=== PATIENT | male | born 1945 | race Caucasian/White ===

== ENCOUNTER → 2018-02-05 | Outpatient (CLI) | END | disposition home or self-care (01) ==

== ENCOUNTER 2018-03-04 04:44 | Observation (INO) | END 2018-03-06 18:10 ==

== ENCOUNTER 2018-03-10 21:04 | Emergency (ER) | END 2018-03-11 01:56 | disposition home or self-care (01) ==

== ENCOUNTER 2018-09-23 17:29 | Observation (INO) | payer MEDICARE, OTHER ==
[~2018-09-23] VITALS: Ht 167.6 cm; Wt 66.5 kg
[~2018-09-23 17:29] MED LIST: ACET-2047 PO; ASCO500C7 PO; ATOR40TA68 PO; BISA10SU55 RC; CARV6.2579 PO; CRAN3875 PO; CRAN425C6 PO; DIVA-75 PO; DOCU-144 PO; FER325 PO; FLUO20CA38 PO; GABA300C16 PO; GUAI5SYR2 PO; HYDR-4011 PO; HYDR100T25 PO; LEVO750T25 PO; LOSA50TA14 PO; MAGN400O19 PO; MAGN400T27 PO; MULTI PO; NA P133E10 RC; NAPR-688 PO; OLAN5TAB5 PO; PANT40TA3 PO; TAMS0.4C2 PO
--- NOTE | 2018-09-23 17:48 | ERD ---
ER Documentation Chief Complaint Chief Complaint CP HPI The patient is a 73-year-old male, presenting to the ER because of left-sided chest pain to the left arm that began around 4:45 PM while he was watching TV. He had similar symptoms previously before he had a stent placement in July 2017. He took 2 nitroglycerin with minimal response, called 911 who gave him additional 2 nitroglycerin and aspirin 162 mg p.o. with some response. He denies fever, chills, cough, neck pain, dyspnea, abdominal pain, vomiting, dysuria, diarrhea. He used to smoke but quitted about 2 years ago Past medical history: Epilepsy, COPD, hypertension, history of CHF, bipolar disorder, chronic low back pain Past surgical history: Back surgery, stent PCI, left testicle resection, peptic ulcer, appendectomy ROS All systems reviewed and are negative except as per history of present illness. Medications Home Meds Active Scripts Levofloxacin* (Levaquin*) 750 Mg Tablet, 750 MG PO DAILY for 10 Days, #10 TAB Prov:EVELIN NICOLAS 03/06/18 Hydrocodone/Acetaminophen ([place] 5-325 Tablet) 1 Each Tablet, 1 EACH PO Q6 PRN for SEVERE PAIN LEVEL 7-10, #7 TAB Prov:THOM RIZZO DO 03/04/18 Naproxen* (Naproxen*) 500 Mg Tablet, 500 MG PO BID PRN for PAIN, #20 TAB Prov:THOM RIZZO DO 03/04/18 Reported Medications Olanzapine* (Zyprexa*) 5 Mg Tablet, 5 MG PO DAILY, #30 TAB 03/04/18 Ascorbic Acid* (Vitamin C*) 500 Mg Capsule.sa, 500 MG PO DAILY, CAP 03/04/18 Cran/Vitc/Mannose/Inulin/Brom (Uti-Stat Liquid) 3,875 Mg/30 Ml Liquid, 3875 MG PO DAILY 03/04/18 Acetaminophen* (Acetaminophen*) 650 Mg Tablet, 650 MG PO Q4 PRN for MILD PAIN LEVEL 1-3, #30 TAB 03/04/18 Tamsulosin Hcl* (Tamsulosin Hcl*) 0.4 Mg Cap.er.24h, 0.4 MG PO HS, CAP 03/04/18 Guaifenesin-Dextromethorphan* (Robitussin* DM) 100MG/10MG/5ML Syrup, 10 ML PO Q4H PRN for COUGH, ML 03/04/18 Fluoxetine Hcl* (Prozac*) 20 Mg Capsule, 20 MG PO DAILY, CAP 03/04/18 Pantoprazole* (Protonix*) 40 Mg Tablet.dr, 40 MG PO DAILY, TAB 03/04/18 Multivitamins* (Theragran*) 1 Tab Tab, 1 TAB PO DAILY, TAB 03/04/18 Magnesium Hydroxide* (Milk Of Magnesia*) 400 Mg/5 Ml Oral.susp, 30 ML PO DAILY, ML 03/04/18 Magnesium Oxide* (Mag-Oxide*) 400 Mg Tablet, 400 MG PO BID, TAB 03/04/18 Losartan Potassium* (Losartan Potassium*) 50 Mg Tablet, 50 MG PO DAILY, TAB 03/04/18 Atorvastatin* (Atorvastatin*) 40 Mg Tablet, 40 MG PO QHS, #30 TAB 03/04/18 Hydralazine Hcl* (Hydralazine Hcl*) 100 Mg Tablet, 100 MG PO Q8, #90 TAB 03/04/18 Gabapentin* (Gabapentin*) 300 Mg Capsule, 300 MG PO DAILY, #60 CAP 03/04/18 Na Phos,M-B/Na Phos,Di-Ba (ENEMA [id number]) 133 Ml Enema, 133 ML RC EVERY 2 DAYS PRN for CONSTIPATION, ENEMA 03/04/18 Ferrous Sulfate* (Ferrous Sulfate*) 325 Mg Tabec, 325 MG PO DAILY, TAB 03/04/18 Bisacodyl (Dulcolax) 10 Mg Supp.rect, 10 MG RC DAILY PRN for CONSTIPATION, SUPP.RECT 03/04/18 Divalproex Sodium* (Depakote ER*) 500 Mg Tabsr, 1000 MG PO QHS, #60 TAB.SA 03/04/18 Cranberry Extract (Cranberry) 425 Mg Capsule, 425 MG PO DAILY, CAP 03/04/18 Docusate Sodium* (Colace*) 100 Mg Capsule, 200 MG PO QHS, #30 CAP 03/04/18 Carvedilol* (Carvedilol*) 6.25 Mg Tablet, 6.25 MG PO BID, #60 TAB 03/04/18 Allergies Allergies: Coded Allergies: iodine (Verified Allergy, Severe, hives, 03/05/18) Penicillins (Verified Allergy, Unknown, 03/04/18) Uncoded Allergies: Contrast (Allergy, Intermediate, 03/05/18) Pt states is allergic to "Xray Dye". States requires Benadryl before contrast given. PMhx/Soc History of Surgery: Yes (back sugery ) Anesthesia Reaction: No Hx Neurological Disorder: Yes (seizure) Hx Respiratory Disorders: Yes (COPD) Hx Cardiac Disorders: Yes (HTN, CHF) Hx Psychiatric Problems: Yes (BI polar ) Hx Miscellaneous Medical Probl: No Hx Alcohol Use: No Hx Substance Use: No Hx Tobacco Use: Yes Physical Exam Vitals Vital Signs Date Temp Pulse Resp B/P (MAP) Pulse Ox O2 O2 Flow FiO2 Time Delivery Rate 09/23/18 98.1 96 23 137/67 97 Room Air 19:31 (90) 09/23/18 98.1 112 18 122/64 98 Room Air 18:04 (83) 09/23/18 98.1 68 18 128/68 100 17:41 (88) Physical Exam Const: No acute distress. Head: Atraumatic. Eyes: Normal Conjunctiva. ENT: Normal External Ears, Nose and Mouth. Minimal left periorbital edema, no nystagmus Neck: Full range of motion. No meningismus. Resp: Clear to auscultation bilaterally. Cardio: Regular rate and rhythm. Abd: Soft, non distended, normal bowel sounds, non tender. Skin: No petechiae or rashes. Back: No midline or flank tenderness. Ext: No cyanosis, or edema. Neur: Awake and alert. No focal deficit Psych: Normal Mood and Affect. Result Diagram: 09/23/18190309/23/181903 Results 24 hrs Laboratory Tests Test 09/23/18 19:04 White Blood Count 6.6 10^3/ul Red Blood Count 3.25 10^6/ul Hemoglobin 9.7 g/dl Hematocrit 32.2 % Mean Corpuscular Volume 99.1 fl Mean Corpuscular Hemoglobin 29.8 pg Mean Corpuscular Hemoglobin Concent 30.1 g/dl Red Cell Distribution Width 15.5 % Platelet Count 264 10^3/UL Mean Platelet Volume 9.8 fl Immature Granulocytes % 0.600 % Neutrophils % 81.2 % Lymphocytes % 10.0 % Monocytes % 8.2 % Eosinophils % 0.0 % Basophils % 0.0 % Nucleated Red Blood Cells % 0.0 /100WBC Immature Granulocytes # 0.040 10^3/ul Neutrophils # 5.4 10^3/ul Lymphocytes # 0.7 10^3/ul Monocytes # 0.5 10^3/ul Eosinophils # 0.0 10^3/ul Basophils # 0.0 10^3/ul Nucleated Red Blood Cells # 0.0 10^3/ul Sodium Level 140 mmol/L Potassium Level 4.2 mmol/L Chloride Level 104 mmol/L Carbon Dioxide Level 32 mmol/L Anion Gap 4 Blood Urea Nitrogen 26 mg/dl Creatinine 0.67 mg/dl Est Glomerular Filtrat Rate mL/min mL/min Glucose Level 191 mg/dl Calcium Level 9.2 mg/dl Troponin I < 0.012 ng/ml Current Medications Medications Dose Sig/Ching Start Time Status Last (Trade) Ordered Route PRN Stop Time Admin Dose Reason Admin 1 inch ONCE ONCE 09/23/18 DC 09/23/18 Nitroglycerin TD 19:00 19:29 09/23/18 19:02 (Nitroglyceri n 2% Oint) Procedures/[place] [address] Radiology Main Line: [phone] DIAGNOSTIC IMAGING REPORT Patient: SANDY WALLACE : 1945 Age: 73 Sex: M MR #: [id number] DOS: 09/23/18 1750 Ordering MD: GERMAN HEBERT MD Location: E/R Room/Bed: PROCEDURE: XR Chest. CLINICAL INDICATION: Chest Pain. TECHNIQUE: Single view chest x-ray. COMPARISON: DR MONET 03/10/2018 FINDINGS: The cardiomediastinal silhouette is normal in size and contour. There are atherosclerotic calcifications of the aortic arch. Left lower lung field greater than right lower lung field infiltrates and/or atelectasis. Probable small left pleural effusion. No pneumothorax visualized. There are low lung volumes. Degenerative changes of the osseous structures. Partial visualization of spinal fusion hardware. IMPRESSION: 1. Left lower lung field greater than right lower lung field infiltrates and/or atelectasis in the low lung volume exam. Probable small left effusion. 2. Aortic atherosclerosis. RPTAT: BBDD Physician Arun Date Time Electronically viewed and signed by Physician Arun on 09/23/2018 18:51 RP/ CC: GERMAN HEBERT MD [id number] EKG: Read by emergency physician Rate/Rhythm: Sinus Tachycardia 102 beats/min QRS, ST, T-waves: No ST elevation, no T inversion, inferior Q's Impression: Abnormal EKG MEDICAL MAKING DECISION: The patient he is a 73-year-old male multiple cardiac risk factors, presents with acute chest pain that is concerning for acute ACS. He was treated with 1 inch of nitroglycerin ointment to the chest wall for acute chest pain The differential diagnoses considered include but are not limited to acute coronary syndrome, acute myocardial infarction, pericarditis, pulmonary e mbolism, aortic dissection, pneumonia, pleural effusion, pneumothorax, GERD, chest wall pain. Departure Diagnosis: Primary Impression: Chest pain Additional Impression: Anemia Condition: Stable Comments I discussed the findings with the patient. I discussed the patient with Dr Steve at 7:50p , who was made aware of the lab, the treatment, the patient condition. The patient is admitted to [facility] Disclaimer: Inadvertent spelling and grammatical errors are likely due to EHR/dictation software use and do not reflect on the overall quality of patient care. Also, please note that the electronic time recorded on this note does not necessarily reflect the actual time of the patient encounter. GERMAN HEBERT MD Sep 23, 2018 17:47
[2018-09-23] MEDS ORDERED: NITROGLYCERIN 2% 1 GM OINT PKT TD ONE (19:00)
[2018-09-23] MEDS ORDERED: NITROGLYCERIN (SL) 0.4 MG TAB SL PRN (22:00)
[2018-09-23] MEDS ORDERED: HYDROCODONE/APAP (5/325) TAB PO PRN (22:00)
[2018-09-23] MEDS ORDERED: ONDANSETRON 4 MG INJ IV PRN (22:00)
[2018-09-23] MEDS ORDERED: ACETAMINOPHEN 325 MG TAB PO PRN (22:00)
[2018-09-23] MEDS ORDERED: ALBUTEROL/IPRATROPIUM (NEB) 3 ML AMP HHN PRN (22:00)
[2018-09-23] MEDS ORDERED: NACL 0.9% 3 ML SYG IV SCH (22:00)
--- NOTE | 2018-09-23 23:48 | HP ---
Date/Time of Note Date/Time of Note DATE: 09/23/18 TIME: 23:48 Assessment/Plan VTE Prophylaxis Pharmacological prophylaxis: heparin Lines/Catheters IV Catheter Type (from Nrs): Saline Lock Assessment/Plan Assessment/Plan 1. Chest pain: Rule out ACS -continue telemetry monitoring -Supplemental oxygen, aspirin, statin, beta-julio. As needed nitro -Serial troponin -2D echo and cardiology consult 2. History of CAD: Per patient was diagnosed in 1983. Denied a history of stent -See #1 3. History of COPD: No sign of acute exacerbation 4. Chronic lower back pain: Patient reported back surgery -Patient is usually on a wheelchair, will occasionally uses a walker -PT eval -Pain management 5. Left testicular resection: Per patient done a year ago for infection -No acute issue 6. Normocytic anemia: -Check FOBT and iron/ferritin to work-up for GI bleed and iron deficiency 7. Debility: See #4 8. History of seizure: Continue home med 9. History of lower extremity DVT: Per patient status post IVC filter placement in 1983. He said filter has not been removed. Result Diagram: 09/23/18190309/23/181903 Results 24hrs Laboratory Tests Test 09/23/18 19:04 White Blood Count 6.6 # Red Blood Count 3.25 L Hemoglobin 9.7 L Hematocrit 32.2 L Mean Corpuscular Volume 99.1 Mean Corpuscular Hemoglobin 29.8 Mean Corpuscular Hemoglobin Concent 30.1 L Red Cell Distribution Width 15.5 H Platelet Count 264 # Mean Platelet Volume 9.8 Immature Granulocytes % 0.600 H Neutrophils % 81.2 H Lymphocytes % 10.0 L Monocytes % 8.2 Eosinophils % 0.0 Basophils % 0.0 Nucleated Red Blood Cells % 0.0 Immature Granulocytes # 0.040 H Neutrophils # 5.4 Lymphocytes # 0.7 L Monocytes # 0.5 Eosinophils # 0.0 Basophils # 0.0 Nucleated Red Blood Cells # 0.0 Sodium Level 140 Potassium Level 4.2 Chloride Level 104 Carbon Dioxide Level 32 H Anion Gap 4 L Blood Urea Nitrogen 26 H Creatinine 0.67 Est Glomerular Filtrat Rate mL/min Glucose Level 191 Calcium Level 9.2 Troponin I < 0.012 HPI/ROS Admit Date/Time Admit Date/Time Hx of Present Illness This is a 73-year-old male with a history of COPD, CHF, bipolar, CAD, epilepsy, chronic low back pain with a history of back surgery, lower extremity DVT status post IVC filter in 1983 who presents the ER complaining of chest pain. Pain is left-sided, pressure-like with radiation to the left arm. He said this started last night. Unable to assess whether or not it is exertional since patient is usually on wheelchair, occasionally uses walker. He said he takes Dilaudid at home for chest pain. Presents the ER, vitals were stable. First troponin is negative and EKG without ST-T wave abnormality. PMH/Family/Social Past Medical History Medical History: other (see hpi) Medications Current Medications IV Flush (NS 3 ml) 3 ml PER PROTOCOL IV ; Start 09/23/18 at 22:00 Ondansetron HCl (Zofran Inj) 4 mg Q6H PRN IV NAUSEA/VOMITING; Start 09/23/18 at 22:00 Aspirin (Aspirin) 81 mg DAILY PO ; Start 09/24/18 at 09:00 Nitroglycerin (Nitroglycerin (Sl Tab) 0.4 Mg) 1 tab Q5M PRN SL .CHEST PAIN; Start 09/23/18 at 22:00 Acetaminophen (Tylenol Tab) 650 mg Q6H PRN PO .PAIN 1-3 OR TEMP; Start 09/23/18 at 22:00 Acetaminophen/ Hydrocodone Bitart ([place] (5/325)) 1 tab Q6H PRN PO .PAIN 4-6 Last administered on 09/23/18at 22:05; Admin Dose 1 TAB; Start 09/23/18 at 22:00 Enoxaparin Sodium (Lovenox) 40 mg DAILY SC ; Start 09/24/18 at 09:00 Albuterol/ Ipratropium (Duoneb) 3 ml Q2H RESP THERAPY PRN HHN SHORTNESS OF BREATH; Start 09/23/18 at 22:00 Atorvastatin Calcium (Lipitor) 40 mg QHS PO ; Start 09/24/18 at 21:00 Carvedilol (Coreg) 6.25 mg BID PO Last administered on 09/23/18at 22:47; Admin Dose 6.25 MG; Start 09/23/18 at 22:00 Divalproex Sodium (Depakote Er) 1,000 mg QHS PO ; Start 09/24/18 at 21:00 Ferrous Sulfate (Ferrous Sulfate (Ec)) 325 mg DAILY PO ; Start 09/24/18 at 09:00 Fluoxetine HCl (Prozac) 20 mg DAILY PO ; Start 09/24/18 at 09:00 Gabapentin (Neurontin) 300 mg DAILY PO ; Start 09/24/18 at 09:00 Losartan Potassium (Cozaar) 50 mg DAILY PO ; Start 09/24/18 at 09:00 Magnesium Oxide (Mag-Ox 400) 400 mg BID PO ; Start 09/24/18 at 09:00 Multivitamins Therapeutic (Theragran) 1 tab DAILY PO ; Start 09/24/18 at 09:00 Olanzapine (Zyprexa) 5 mg DAILY PO ; Start 09/24/18 at 09:00 Pantoprazole (Protonix Tab) 40 mg DAILY@0600 PO ; Start 09/24/18 at 06:00 Coded Allergies: iodine (Verified Allergy, Severe, hives, 03/05/18) Penicillins (Verified Allergy, Unknown, 03/04/18) Uncoded Allergies: Contrast (Allergy, Intermediate, 03/05/18) Pt states is allergic to "Xray Dye". States requires Benadryl before contrast given. Past Surgical History Past Surgical Hx: other Family History Significant Family History: no pertinent family hx Social History Alcohol Use: other Smoking Status: Unknown if ever smoked Drug Use: other Exam/Review of Systems Vital Signs Vitals Vital Signs Date Temp Pulse Resp B/P (MAP) Pulse Ox O2 O2 Flow FiO2 Time Delivery Rate 09/23/18 98.1 95 23 119/61 95 Room Air 22:58 (80) Exam Constitutional: other (no acute distress) Head: normocephalic ENMT: nl external ears & nose Neck: supple Respiratory: normal air movement Cardiovascular: nl pulses Gastrointestinal: soft Extremities: normal pulses ARIE FOOTE MD Sep 23, 2018 23:48
[2018-09-24] VITALS (10 sets, daily range): BP systolic 118–155; BP diastolic 56–69; PULSE 71–98; RESP 18–19; Ht 167.6 cm; Wt 66.5 kg
[2018-09-24] MEDS ORDERED: morphine 4 MG/ML VIAL IV STA ×2 (00:24→05:41)
[2018-09-24] MEDS ORDERED: ZOLPIDEM 5 MG TAB PO ONE ×2 (02:04→21:00)
[2018-09-24] MEDS: GUAIFENESIN 20 MG/ML 5ML CUP PO PRN ×3 (02:17→18:30)
[2018-09-24] MEDS: PANTOPRAZOLE (EC) 40 MG TAB PO SCH (06:13)
[2018-09-24] MEDS: ASPIRIN 81 MG TAB PO SCH (08:16)
[2018-09-24] MEDS: MULTIVITAMINS THERAPEUTIC TAB PO SCH (08:16)
[2018-09-24] MEDS: GABAPENTIN 300 MG CAP PO SCH (08:16)
[2018-09-24] MEDS: MAGNESIUM OXIDE 400 MG TAB PO SCH ×2 (08:16→21:50)
[2018-09-24] MEDS: OLANZAPINE 5 MG TAB PO SCH (08:16)
[2018-09-24] MEDS: FERROUS SULFATE (EC) 325 MG TAB PO SCH (08:16)
[2018-09-24] MEDS: FLUOXETINE 20 MG CAP PO SCH (08:17)
[2018-09-24] MEDS: LOSARTAN 50 MG TAB PO SCH (08:17)
[2018-09-24] MEDS ORDERED: ENOXAPARIN 40 MG/0.4 ML SYG SC SCH (09:00)
[2018-09-24] MEDS: morphine 2 MG INJ IV PRN ×2 (12:27→17:18)
--- NOTE | 2018-09-24 12:35 | PN ---
Date/Time of Note Date/Time of Note DATE: 09/24/18 TIME: 12:26 Assessment/Plan VTE Prophylaxis Risk score (from Ns)>0 risk: 6 SCD applied (from Ns): No SCD contraindicated: other Pharmacological prophylaxis: LMWH Lines/Catheters IV Catheter Type (from [facility]): Saline Lock Urinary Cath still in place: No Assessment/Plan Hospital Course S: Patient presently denies chest pain. No acute events overnight. O: VS- see below PE: Gen: Lying in bed, conversant, hard of hearing, but no acute distress. Head: Atraumatic. Eyes: Normal Conjunctiva. ENT: Normal External Ears, Nose and Mouth. Minimal left periorbital edema, no nystagmus Neck: Full range of motion. No meningismus. Resp: Clear to auscultation bilaterally. Cardio: Regular rate and rhythm. Abd: Soft, non distended, normal bowel sounds, non tender. Ext: No cyanosis, or edema. Neur: Awake and alert. No focal deficit Assessment/Plan: 73-year-old male who presents with: 1. Chest pain: Rule out ACS. First 2 troponins are negative. Per records, last stress test here at [facility] was in February 2018. 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 -continue telemetry monitoring -Supplemental oxygen, aspirin, statin, beta-julio. As needed nitro -Serial troponin -awaiting third -Follow-up results of 2D echo and will obtain cardiology consult 2. History of CAD: Per patient was diagnosed in 1983. Denied a history of cardiac stent -See #1 3. History of COPD: No sign of acute exacerbation -Monitor, duo nebs as needed 4. Chronic lower back pain: Patient reported back surgery-Patient is usually on a wheelchair, will occasionally uses a walker -We will obtain PT eval -Pain management 5. 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 Normocytic anemia: Hemoglobin stable -Monitor for now, consider FOBT and iron/ferritin to work-up for iron deficiency 7. Debility: See #4 8. History of seizure: Continue home med 9. History of lower extremity DVT: Per patient status post IVC filter placement in 1983. He said filter has not been removed. -Monitor Result Diagram: 09/24/18 1100 09/24/18 1100 Results 24hrs Laboratory Tests Test 4/22/19 19:04 09/24/18 00:42 09/24/18 11:00 White Blood Count 6.6 # 5.3 Red Blood Count 3.25 L 3.12 L Hemoglobin 9.7 L 9.3 L Hematocrit 32.2 L 30.7 L Mean Corpuscular Volume 99.1 98.4 Mean Corpuscular Hemoglobin 29.8 29.8 Mean Corpuscular Hemoglobin Concent 30.1 L 30.3 L Red Cell Distribution Width 15.5 H 16.1 H Platelet Count 264 # 280 Mean Platelet Volume 9.8 9.7 Immature Granulocytes % 0.600 H 0.600 H Neutrophils % 81.2 H 56.2 Lymphocytes % 10.0 L 29.3 Monocytes % 8.2 11.6 H Eosinophils % 0.0 1.7 Basophils % 0.0 0.6 Nucleated Red Blood Cells % 0.0 0.0 Immature Granulocytes # 0.040 H 0.030 Neutrophils # 5.4 3.0 Lymphocytes # 0.7 L 1.5 Monocytes # 0.5 0.6 Eosinophils # 0.0 0.1 Basophils # 0.0 0.0 Nucleated Red Blood Cells # 0.0 0.0 Sodium Level 140 141 Potassium Level 4.2 4.4 Chloride Level 104 104 Carbon Dioxide Level 32 H 35 H Anion Gap 4 L 2 L Blood Urea Nitrogen 26 H 23 H Creatinine 0.67 0.69 Est Glomerular Filtrat Rate mL/min Glucose Level 191 95 # Calcium Level 9.2 9.4 Troponin I < 0.012 < 0.012 < 0.012 Creatine Kinase 30 22 L Creatine Kinase Index 6.1 Pending Creatinine Kinase MB (Mass) 1.83 Pending Hemoglobin A1c 6.0 H Magnesium Level 2.0 Iron Level 78 Total Iron Binding Capacity 259 Percent Iron Saturation 30 Total Bilirubin 0.1 L Direct Bilirubin 0.00 Indirect Bilirubin 0.1 Aspartate Amino Transf (AST/SGOT) 29 Alanine Aminotransferase (ALT/SGPT) 32 Alkaline Phosphatase 93 Total Protein 5.9 L Albumin 3.1 L Globulin 2.80 Albumin/Globulin Ratio 1.10 Triglycerides Level 135 Cholesterol Level 149 LDL Cholesterol, Calculated 70 HDL Cholesterol 52 Cholesterol/HDL Ratio 2.8 Exam/Review of Systems Exam Vitals Vital Signs Date Temp Pulse Resp B/P (MAP) Pulse Ox O2 O2 Flow FiO2 Time Delivery Rate 09/24/18 98.0 77 19 140/66 95 11:05 (90) 09/23/18 Room Air 23:50 Intake and Output 09/23/18 09/23/18 09/24/18 1515:00 23:00 07:00 IntakeIntake Total 450 ml BalanceBalance 450 ml Results Results 24hrs Laboratory Tests Test 09/23/18 19:04 09/24/18 00:42 09/24/18 11:00 White Blood Count 6.6 # 5.3 Red Blood Count 3.25 L 3.12 L Hemoglobin 9.7 L 9.3 L Hematocrit 32.2 L 30.7 L Mean Corpuscular Volume 99.1 98.4 Mean Corpuscular Hemoglobin 29.8 29.8 Mean Corpuscular Hemoglobin Concent 30.1 L 30.3 L Red Cell Distribution Width 15.5 H 16.1 H Platelet Count 264 # 280 Mean Platelet Volume 9.8 9.7 Immature Granulocytes % 0.600 H 0.600 H Neutrophils % 81.2 H 56.2 Lymphocytes % 10.0 L 29.3 Monocytes % 8.2 11.6 H Eosinophils % 0.0 1.7 Basophils % 0.0 0.6 Nucleated Red Blood Cells % 0.0 0.0 Immature Granulocytes # 0.040 H 0.030 Neutrophils # 5.4 3.0 Lymphocytes # 0.7 L 1.5 Monocytes # 0.5 0.6 Eosinophils # 0.0 0.1 Basophils # 0.0 0.0 Nucleated Red Blood Cells # 0.0 0.0 Sodium Level 140 141 Potassium Level 4.2 4.4 Chloride Level 104 104 Carbon Dioxide Level 32 H 35 H Anion Gap 4 L 2 L Blood Urea Nitrogen 26 H 23 H Creatinine 0.67 0.69 Est Glomerular Filtrat Rate mL/min Glucose Level 191 95 # Calcium Level 9.2 9.4 Troponin I < 0.012 < 0.012 < 0.012 Creatine Kinase 30 22 L Creatine Kinase Index 6.1 Pending Creatinine Kinase MB (Mass) 1.83 Pending Hemoglobin A1c 6.0 H Magnesium Level 2.0 Iron Level 78 Total Iron Binding Capacity 259 Percent Iron Saturation 30 Total Bilirubin 0.1 L Direct Bilirubin 0.00 Indirect Bilirubin 0.1 Aspartate Amino Transf (AST/SGOT) 29 Alanine Aminotransferase (ALT/SGPT) 32 Alkaline Phosphatase 93 Total Protein 5.9 L Albumin 3.1 L Globulin 2.80 Albumin/Globulin Ratio 1.10 Triglycerides Level 135 Cholesterol Level 149 LDL Cholesterol, Calculated 70 HDL Cholesterol 52 Cholesterol/HDL Ratio 2.8 Medications Medication Current Medications IV Flush (NS 3 ml) 3 ml PER PROTOCOL IV ; Start 09/23/18 at 22:00 Ondansetron HCl (Zofran Inj) 4 mg Q6H PRN IV NAUSEA/VOMITING; Start 09/23/18 at 22:00 Aspirin (Aspirin) 81 mg DAILY PO Last administered on 09/24/18 08:16; Admin Dose 81 MG; Start 09/24/18 at 09:00 Nitroglycerin (Nitroglycerin (Sl Tab) 0.4 Mg) 1 tab Q5M PRN SL .CHEST PAIN; Start 09/23/18 at 22:00 Acetaminophen (Tylenol Tab) 650 mg Q6H PRN PO .PAIN 1-3 OR TEMP; Start 09/23/18 at 22:00 Acetaminophen/ Hydrocodone Bitart ([place] (5/325)) 1 tab Q6H PRN PO .PAIN 4-6 Last administered on 09/23/18at 22:05; Admin Dose 1 TAB; Start 09/23/18 at 22:00 Enoxaparin Sodium (Lovenox) 40 mg DAILY SC Last administered on 09/24/18 08:22; Admin Dose 40 MG; Start 09/24/18 at 09:00 Albuterol/ Ipratropium (Duoneb) 3 ml Q2H RESP THERAPY PRN HHN SHORTNESS OF BREATH; Start 09/23/18 at 22:00 Atorvastatin Calcium (Lipitor) 40 mg QHS PO ; Start 09/24/18 at 21:00 Carvedilol (Coreg) 6.25 mg BID PO Last administered on 09/24/18 08:17; Admin Dose 6.25 MG; Start 09/23/18 at 22:00 Divalproex Sodium (Depakote Er) 1,000 mg QHS PO ; Start 09/24/18 at 21:00 Ferrous Sulfate (Ferrous Sulfate (Ec)) 325 mg DAILY PO Last administered on 09/24/18 08:16; Admin Dose 325 MG; Start 09/24/18 at 09:00 Fluoxetine HCl (Prozac) 20 mg DAILY PO Last administered on 09/24/18 08:17; Admin Dose 20 MG; Start 09/24/18 at 09:00 Gabapentin (Neurontin) 300 mg DAILY PO Last administered on 09/24/18 08:16; Admin Dose 300 MG; Start 09/24/18 at 09:00 Losartan Potassium (Cozaar) 50 mg DAILY PO Last administered on 09/24/18 08:17; Admin Dose 50 MG; Start 09/24/18 at 09:00 Magnesium Oxide (Mag-Ox 400) 400 mg BID PO Last administered on 09/24/18 08:16; Admin Dose 400 MG; Start 09/24/18 at 09:00 Multivitamins Therapeutic (Theragran) 1 tab DAILY PO Last administered on 09/24/18 08:16; Admin Dose 1 TAB; Start 09/24/18 at 09:00 Olanzapine (Zyprexa) 5 mg DAILY PO Last administered on 09/24/18 08:16; Admin Dose 5 MG; Start 09/24/18 at 09:00 Pantoprazole (Protonix Tab) 40 mg DAILY@0600 PO Last administered on 09/24/18 06:13; Admin Dose 40 MG; Start 09/24/18 at 06:00 Guaifenesin (Robitussin Liquid Cup) 100 mg Q4H PRN PO COUGH Last administered on 09/24/18 02:17; Admin Dose 100 MG; Start 09/24/18 at 02:00; Stop 09/25/18 at 01:59 Morphine Sulfate (morphine) 1 mg Q4H PRN IV SEVERE PAIN LEVEL 7-10; Start 09/24/18 at 12:30 SANDEE MCDONALD Sep 24, 2018 12:35
[2018-09-24] MEDS ORDERED: BENZ-5 PO (13:11)
--- NOTE | 2018-09-24 14:56 | CONS ---
Assessment/Plan Assessment/Plan Hospital Course (Demo Recall) 1. Chest pain appears to be typical with recurrent 2. History of DVT and PE 3. Hypertension 4. Reported history of congestive heart failure 5. COPD possible pneumonia 6. Psych disorder 7. Abnormal EKG Recommendation: Patient's troponin have been negative so far. We will schedule him for Lexiscan stress test today. If the stress test does not show any reversible ischemia patient needs to be started on Eliquis as long as no bleeding is noted Continue to monitor on telemetry now Continue with the Coreg and ARB at the moment Thank you for his referral. We will continue to follow along with you JUAN JO MD [facility] Consultation Date/Type/Reason Admit Date/Time Date of Consultation: Sep 24, 2018 Type of Consult Cardiology Reason for Consultation cp Requesting Provider: SANDEE MCDONALD Date/Time of Note DATE: 09/24/18 TIME: 14:50 Hx of Present Illness Interventional cardiology consultation note Chief complaint: Chest pain Reason for consult: Chest pain History of present illness: Thank you for this referral. History was obtained from the patient who is a very poor historian. From extensive review of the old chart and discussion physician staff This is a 3-year-old gentleman with a reported history of coronary artery disease and [place] in 1983 who was admitted through emergency room with complaint of recurrent chest pain. Again patient is a very poor historian but complains of chest pain on the left side poking. When I got to the room he was comfortably sleeping when I asked him I will give him obviously that he has pain severe left-sided. His old chart was reviewed patient has had recurrent similar pain. Work-up previously about a year ago was negative including per review of the old chart he has had a negative stress test at [facility]. Patient also has a history of DVT and probably PE as well has an IVC filter in place and supposed to be on Eliquis by do not see the list of his medication Medications were reviewed as per medical reconciliation sheet Family history:, Patient mother with coronary artery disease Social history: Quit smoking 2 years ago. Currently a intermediate. Past medical history: Patient reports history of coronary artery disease and PCI many years ago is an 82 per his report History of bilateral DVT. Per review of the old chart discussion with the physician apparently he has had a IVC filter in place. History of spinal stenosis status post spinal surgery last year at [facility] Hypertension dyslipidemia, diabetes, bipolar disorder, BPH anemia Allergies: Contrast placed saline iodine Medications were reviewed as per medical reconciliation sheet Review of system: Patient denies all others except for above-mentioned Past Medical History Home Meds Active Scripts Levofloxacin* (Levaquin*) 750 Mg Tablet, 750 MG PO DAILY for 10 Days, #10 TAB Prov:EVELIN NICOLAS. 03/06/18 Hydrocodone/Acetaminophen (Melrose 5-325 Tablet) 1 Each Tablet, 1 EACH PO Q6 PRN for SEVERE PAIN LEVEL 7-10, #7 TAB Prov:THOM RIZZO DO 03/04/18 Naproxen* (Naproxen*) 500 Mg Tablet, 500 MG PO BID PRN for PAIN, #20 TAB Prov:MATTHIASSANTITHOM DO 03/04/18 Reported Medications Benzonatate* (Benzonatate*) 100 Mg Capsule, 100 MG PO TID PRN for COUGH, CAP 09/24/18 Olanzapine* (Zyprexa*) 5 Mg Tablet, 5 MG PO DAILY, #30 TAB 03/04/18 Ascorbic Acid* (Vitamin C*) 500 Mg Capsule.sa, 500 MG PO DAILY, CAP 03/04/18 Cran/Vitc/Mannose/Inulin/Brom (Uti-Stat Liquid) 3,875 Mg/30 Ml Liquid, 3875 MG PO DAILY 03/04/18 Acetaminophen* (Acetaminophen*) 650 Mg Tablet, 650 MG PO Q4 PRN for MILD PAIN LEVEL 1-3, #30 TAB 03/04/18 Tamsulosin Hcl* (Tamsulosin Hcl*) 0.4 Mg Cap.er.24h, 0.4 MG PO HS, CAP 03/04/18 Guaifenesin-Dextromethorphan* (Robitussin* DM) 100MG/10MG/5ML Syrup, 10 ML PO Q4H PRN for COUGH, ML 03/04/18 Fluoxetine Hcl* (Prozac*) 20 Mg Capsule, 20 MG PO DAILY, CAP 03/04/18 Pantoprazole* (Protonix*) 40 Mg Tablet.dr, 40 MG PO DAILY, TAB 03/04/18 Multivitamins* (Theragran*) 1 Tab Tab, 1 TAB PO DAILY, TAB 03/04/18 Magnesium Hydroxide* (Milk Of Magnesia*) 400 Mg/5 Ml Oral.susp, 30 ML PO DAILY, ML 03/04/18 Magnesium Oxide* (Mag-Oxide*) 400 Mg Tablet, 400 MG PO BID, TAB 03/04/18 Losartan Potassium* (Losartan Potassium*) 50 Mg Tablet, 50 MG PO DAILY, TAB 03/04/18 Atorvastatin* (Atorvastatin*) 40 Mg Tablet, 40 MG PO QHS, #30 TAB 03/04/18 Hydralazine Hcl* (Hydralazine Hcl*) 100 Mg Tablet, 100 MG PO Q8, #90 TAB 03/04/18 Gabapentin* (Gabapentin*) 300 Mg Capsule, 300 MG PO DAILY, #60 CAP 03/04/18 Na Phos,M-B/Na Phos,Di-Ba (ENEMA [id number]) 133 Ml Enema, 133 ML RC EVERY 2 DAYS PRN for CONSTIPATION, ENEMA 03/04/18 Ferrous Sulfate* (Ferrous Sulfate*) 325 Mg Tabec, 325 MG PO DAILY, TAB 03/04/18 Bisacodyl (Dulcolax) 10 Mg Supp.rect, 10 MG RC DAILY PRN for CONSTIPATION, SUPP.RECT 03/04/18 Divalproex Sodium* (Depakote ER*) 500 Mg Tabsr, 1000 MG PO QHS, #60 TAB.SA 03/04/18 Cranberry Extract (Cranberry) 425 Mg Capsule, 425 MG PO DAILY, CAP 03/04/18 Docusate Sodium* (Colace*) 100 Mg Capsule, 200 MG PO QHS, #30 CAP 03/04/18 Carvedilol* (Carvedilol*) 6.25 Mg Tablet, 6.25 MG PO BID, #60 TAB 03/04/18 Medications Current Medications IV Flush (NS 3 ml) 3 ml PER PROTOCOL IV ; Start 09/23/18 at 22:00 Ondansetron HCl (Zofran Inj) 4 mg Q6H PRN IV NAUSEA/VOMITING; Start 09/23/18 at 22:00 Aspirin (Aspirin) 81 mg DAILY PO Last administered on 09/24/18at 08:16; Admin Dose 81 MG; Start 09/24/18 at 09:00 Nitroglycerin (Nitroglycerin (Sl Tab) 0.4 Mg) 1 tab Q5M PRN SL .CHEST PAIN; Start 09/23/18 at 22:00 Acetaminophen (Tylenol Tab) 650 mg Q6H PRN PO .PAIN 1-3 OR TEMP; Start 09/23/18 at 22:00 Acetaminophen/ Hydrocodone Bitart (Melrose (5/325)) 1 tab Q6H PRN PO .PAIN 4-6 Last administered on 09/23/18 22:05; Admin Dose 1 TAB; Start 09/23/18 at 22:00 Enoxaparin Sodium (Lovenox) 40 mg DAILY SC Last administered on 09/24/18 08:22; Admin Dose 40 MG; Start 09/24/18 at 09:00 Albuterol/ Ipratropium (Duoneb) 3 ml Q2H RESP THERAPY PRN HHN SHORTNESS OF BREATH; Start 09/23/18 at 22:00 Atorvastatin Calcium (Lipitor) 40 mg QHS PO ; Start 09/24/18 at 21:00 Carvedilol (Coreg) 6.25 mg BID PO Last administered on 09/24/18 08:17; Admin Dose 6.25 MG; Start 09/23/18 at 22:00 Divalproex Sodium (Depakote Er) 1,000 mg QHS PO ; Start 09/24/18 at 21:00 Ferrous Sulfate (Ferrous Sulfate (Ec)) 325 mg DAILY PO Last administered on 09/24/18 08:16; Admin Dose 325 MG; Start 09/24/18 at 09:00 Fluoxetine HCl (Prozac) 20 mg DAILY PO Last administered on 09/24/18 08:17; Admin Dose 20 MG; Start 09/24/18 at 09:00 Gabapentin (Neurontin) 300 mg DAILY PO Last administered on 09/24/18 08:16; Admin Dose 300 MG; Start 09/24/18 at 09:00 Losartan Potassium (Cozaar) 50 mg DAILY PO Last administered on 09/24/18 08: 17; Admin Dose 50 MG; Start 09/24/18 at 09:00 Magnesium Oxide (Mag-Ox 400) 400 mg BID PO Last administered on 09/24/18 08:16; Admin Dose 400 MG; Start 09/24/18 at 09:00 Multivitamins Therapeutic (Theragran) 1 tab DAILY PO Last administered on 09/24/18 08:16; Admin Dose 1 TAB; Start 09/24/18 at 09:00 Olanzapine (Zyprexa) 5 mg DAILY PO Last administered on 09/24/18at 08:16; Admin Dose 5 MG; Start 09/24/18 at 09:00 Pantoprazole (Protonix Tab) 40 mg DAILY@0600 PO Last administered on 09/24/18at 06:13; Admin Dose 40 MG; Start 09/24/18 at 06:00 Guaifenesin (Robitussin Liquid Cup) 100 mg Q4H PRN PO COUGH Last administered on 09/24/18at 12:29; Admin Dose 100 MG; Start 09/24/18 at 02:00; Stop 09/25/18 at 01:59 Morphine Sulfate (morphine) 1 mg Q4H PRN IV SEVERE PAIN LEVEL 7-10 Last administered on 09/24/18at 12:27; Admin Dose 1 MG; Start 09/24/18 at 12:30 Allergies: Coded Allergies: iodine (Verified Allergy, Severe, hives, 03/05/18) Penicillins (Verified Allergy, Unknown, 03/04/18) Uncoded Allergies: Contrast (Allergy, Intermediate, 03/05/18) Pt states is allergic to "Xray Dye". States requires Benadryl before contrast given. Past Surgical History Past Surgical Hx: other Social History Smoking Status: Former smoker Exam/Review of Systems Vital Signs Vitals Vital Signs Date Temp Pulse Resp B/P (MAP) Pulse Ox O2 O2 Flow FiO2 Time Delivery Rate 09/24/18 98 12:00 09/24/18 98.0 19 140/66 95 11:05 (90) 09/23/18 Room Air 23:50 Intake and Output 09/23/18 09/23/18 09/24/18 1515:00 23:00 07:00 IntakeIntake Total 450 ml BalanceBalance 450 ml Exam Exam General: no acute distress HEENT: NC/AT. pupils are equal. round. NECK: NO JVD. no stridor. CV: RRR. systolic murmur; no gallop or rubs. PULM: no wheezing or rhonchi. GI: SOFT, NT, ND, no rebound or guarding Extremity: trace B/L LE edema. no clubbing. neuro: awake and alert, Psych: calm and pleasant rectal: deferred : normal EKG shows normal sinus rhythm. Inferior infarct age undetermined Labs Result Diagram: 09/24/18 1100 09/24/18 1100 Results 24hrs Laboratory Tests Test 09/23/18 19:04 09/24/18 00:42 09/24/18 11:00 White Blood Count 6.6 # 5.3 Red Blood Count 3.25 L 3.12 L Hemoglobin 9.7 L 9.3 L Hematocrit 32.2 L 30.7 L Mean Corpuscular Volume 99.1 98.4 Mean Corpuscular Hemoglobin 29.8 29.8 Mean Corpuscular Hemoglobin Concent 30.1 L 30.3 L Red Cell Distribution Width 15.5 H 16.1 H Platelet Count 264 # 280 Mean Platelet Volume 9.8 9.7 Immature Granulocytes % 0.600 H 0.600 H Neutrophils % 81.2 H 56.2 Lymphocytes % 10.0 L 29.3 Monocytes % 8.2 11.6 H Eosinophils % 0.0 1.7 Basophils % 0.0 0.6 Nucleated Red Blood Cells % 0.0 0.0 Immature Granulocytes # 0.040 H 0.030 Neutrophils # 5.4 3.0 Lymphocytes # 0.7 L 1.5 Monocytes # 0.5 0.6 Eosinophils # 0.0 0.1 Basophils # 0.0 0.0 Nucleated Red Blood Cells # 0.0 0.0 Sodium Level 140 141 Potassium Level 4.2 4.4 Chloride Level 104 104 Carbon Dioxide Level 32 H 35 H Anion Gap 4 L 2 L Blood Urea Nitrogen 26 H 23 H Creatinine 0.67 0.69 Est Glomerular Filtrat Rate mL/min Glucose Level 191 95 # Calcium Level 9.2 9.4 Troponin I < 0.012 < 0.012 < 0.012 Creatine Kinase 30 22 L Creatine Kinase Index 6.1 7.7 Creatinine Kinase MB (Mass) 1.83 1.69 Hemoglobin A1c 6.0 H Magnesium Level 2.0 Iron Level 78 Total Iron Binding Capacity 259 Percent Iron Saturation 30 Total Bilirubin 0.1 L Direct Bilirubin 0.00 Indirect Bilirubin 0.1 Aspartate Amino Transf (AST/SGOT) 29 Alanine Aminotransferase (ALT/SGPT) 32 Alkaline Phosphatase 93 Total Protein 5.9 L Albumin 3.1 L Globulin 2.80 Albumin/Globulin Ratio 1.10 Triglycerides Level 135 Cholesterol Level 149 LDL Cholesterol, Calculated 70 HDL Cholesterol 52 Cholesterol/HDL Ratio 2.8 Medications Medications Current Medications IV Flush (NS 3 ml) 3 ml PER PROTOCOL IV ; Start 09/23/18 at 22:00 Ondansetron HCl (Zofran Inj) 4 mg Q6H PRN IV NAUSEA/VOMITING; Start 09/23/18 at 22:00 Aspirin (Aspirin) 81 mg DAILY PO Last administered on 09/24/18 08:16; Admin Dose 81 MG; Start 09/24/18 at 09:00 Nitroglycerin (Nitroglycerin (Sl Tab) 0.4 Mg) 1 tab Q5M PRN SL .CHEST PAIN; Start 09/23/18 at 22:00 Acetaminophen (Tylenol Tab) 650 mg Q6H PRN PO .PAIN 1-3 OR TEMP; Start 09/23/18 at 22:00 Acetaminophen/ Hydrocodone Bitart (Melrose (5/325)) 1 tab Q6H PRN PO .PAIN 4-6 Last administered on 09/23/18at 22:05; Admin Dose 1 TAB; Start 09/23/18 at 22:00 Enoxaparin Sodium (Lovenox) 40 mg DAILY SC Last administered on 09/24/18 08:22; Admin Dose 40 MG; Start 09/24/18 at 09:00 Albuterol/ Ipratropium (Duoneb) 3 ml Q2H RESP THERAPY PRN HHN SHORTNESS OF BREATH; Start 09/23/18 at 22:00 Atorvastatin Calcium (Lipitor) 40 mg QHS PO ; Start 09/24/18 at 21:00 Carvedilol (Coreg) 6.25 mg BID PO Last administered on 09/24/18 08:17; Admin Dose 6.25 MG; Start 09/23/18 at 22:00 Divalproex Sodium (Depakote Er) 1,000 mg QHS PO ; Start 09/24/18 at 21:00 Ferrous Sulfate (Ferrous Sulfate (Ec)) 325 mg DAILY PO Last administered on 09/24/18 08:16; Admin Dose 325 MG; Start 09/24/18 at 09:00 Fluoxetine HCl (Prozac) 20 mg DAILY PO Last administered on 09/24/18 08:17; Admin Dose 20 MG; Start 09/24/18 at 09:00 Gabapentin (Neurontin) 300 mg DAILY PO Last administered on 09/24/18 08:16; Admin Dose 300 MG; Start 09/24/18 at 09:00 Losartan Potassium (Cozaar) 50 mg DAILY PO Last administered on 09/24/18 08:17; Admin Dose 50 MG; Start 09/24/18 at 09:00 Magnesium Oxide (Mag-Ox 400) 400 mg BID PO Last administered on 09/24/18 08:16; Admin Dose 400 MG; Start 09/24/18 at 09:00 Multivitamins Therapeutic (Theragran) 1 tab DAILY PO Last administered on 09/24/18 08:16; Admin Dose 1 TAB; Start 09/24/18 at 09:00 Olanzapine (Zyprexa) 5 mg DAILY PO Last administered on 09/24/18 08:16; Admin Dose 5 MG; Start 09/24/18 at 09:00 Pantoprazole (Protonix Tab) 40 mg DAILY@0600 PO Last administered on 09/24/18 06:13; Admin Dose 40 MG; Start 09/24/18 at 06:00 Guaifenesin (Robitussin Liquid Cup) 100 mg Q4H PRN PO COUGH Last administered on 09/24/18 12:29; Admin Dose 100 MG; Start 09/24/18 at 02:00; Stop 09/25/18 at 01:59 Morphine Sulfate (morphine) 1 mg Q4H PRN IV SEVERE PAIN LEVEL 7-10 Last administered on 09/24/18 12:27; Admin Dose 1 MG; Start 09/24/18 at 12:30 JUAN JO MD Sep 24, 2018 14:56
[2018-09-24] MEDS ORDERED: CEPASTAT LOZENGE MT PRN (15:00)
--- NOTE | 2018-09-24 15:37 | RADRPT ---
Echocardiogram Report Patient Name: SANDY WALLACEPatient ID: [id number] : [id number] (73y 6m)Study Date: 09/24/2018 3:01:59 PM Gender: MAccession #: [id number] Tech: Remigio Perez [facility] Location: 6[address] Ref.Physician: JUAN RAMIREZ Height(Cm): BSA: Weight(Kg): Quality: Technically Difficult StudyAccount #: Procedures: Echocardiographic Report: Transthoracic echocardiogram with complete 2D, M-Mode, and doppler examination. Indications: Chest Pain. Measurements: 2D/M Mode Doppler Measurement Value Normal Range Measurement Value Normal Range LVIDd 2D 4.7 [ 4.2 - 5.8 ] cm AV Peak Milton 1.1 [ 100.0 - 170.0 ] cm/sec LVIDs 2D 3.0 [ 2.5 - 4.0 ] cm AV Peak PG 5.0 [ 2.0 - 9.0 ] mmHg LVPWd 2D 1.0 [ 0.6 - 1.0 ] cm LVOT Peak [place] 0.9 [ 70.0 - 110.0 ] cm/sec IVSd 2D 1.4 [ 0.6 - 1.0 ] cm LVOT Peak PG 3.0 [ 2.0 - 6.0 ] mmHg IVS/LVPW 2D 1.5 ratio MV E Peak [place] 0.7 [ 60.0 - 130.0 ] cm/sec AoR Diam 2D 2.6 [ 2.6 - 3.4 ] cm MV A Peak [place] 0.5 [ 100.0 - 120.0 ] cm/sec LA/Ao 2D 1 ratio MV E/A 1.4 [ 0.8 - 1.5 ] ratio LA Dimen 2D 3.7 [ 3.0 - 4.0 ] cm MV Decel Time 257 [ 104 - 258 ] msec Lat E` Milton 0.1 [ 10.0 - 15.0 ] cm/sec MV E/A 1.4 [ 0.8 - 1.5 ] ratio TR Peak Milton 2.4 [ 100.0 - 280.0 ] cm/sec TR Peak PG 22.0 mmHg RVSP 32.0 [ 10.0 - 36.0 ] mmHg Findings: Left Ventricle: Lower limits of normal systolic function. Normal left ventricular cavity size. Sigmoid septum. Ejection fraction is visually estimated at 55 %. Tissue Doppler/Mitral Doppler indices are consistent with pseudonormalization with mildly elevated left atrial pressure (Stage II diastolic dysfunction). These segments of the LV are hypokinetic inferior mid segment and inferior apex segment. Right Ventricle: Normal right ventricular size. Normal right ventricular systolic function. Left Atrium: The left atrium is normal in size. Right Atrium: The right atrium is normal in size. Mitral Valve: Mild mitral leaflet calcification. Mild mitral annular calcification. Trace mitral regurgitation. Aortic Valve: No hemodynamically significant aortic stenosis by doppler. Aortic cusps appear mildly calcified. Tricuspid Valve: Normal appearance of the tricuspid valve. Estimated peak PA systolic pressure 32 mmHg. There is mild tricuspid regurgitation. Pericardium: Normal pericardium with no significant pericardial effusion. Left pleural effusion seen. Aorta: Normal aortic root. IVC: Normal size and normal respiratory collapse consistent with normal right atrial pressure. Conclusions: Lower limits of normal systolic function. Normal left ventricular cavity size. Sigmoid septum. Ejection fraction is visually estimated at 55 %. Tissue Doppler/Mitral Doppler indices are consistent with pseudonormalization with mildly elevated left atrial pressure (Stage II diastolic dysfunction). These segments of the LV are hypokinetic inferior mid segment and inferior apex segment. The left atrium is normal in size. Mild mitral leaflet calcification. Mild mitral annular calcification. Trace mitral regurgitation. No hemodynamically significant aortic stenosis by doppler. Aortic cusps appear mildly calcified. Normal appearance of the tricuspid valve. Estimated peak PA systolic pressure 32 mmHg. There is mild tricuspid regurgitation. Electronically Signed By: Juan Ramirez 2018-09-24 15:37:00 PDT
[2018-09-24] MEDS ORDERED: REGADENOSON 0.4 MG/5 ML SYG ONE (16:25)
--- NOTE | 2018-09-24 17:12 | SP ---
DATE OF PROCEDURE: 09/24/2018 TYPE OF PROCEDURE: Lexiscan stress test. INDICATION: Chest pain DESCRIPTION: Lexiscan was performed as per protocol. FINDINGS: 1. Baseline EKG shows normal sinus rhythm, possible inferior infarct, age undetermined. Heart rate at baseline is 74, blood pressure 123/65, heart rate at peak stress is 86, blood pressure 133/61. 2. No significant ischemic ST changes noted. CONCLUSIONS: Completion of Lexiscan at stress as per protocol. See nuclear medicine result for caden l report. Dictated By: JUAN JO MD AV/NTS Conf#: [id number] DID#: [id number] CC: MARA PRICE MD; ARIE FOOTE MD; SANDEE MCDONALD;*EndCC*
[2018-09-24] MEDS ORDERED: DIVALPROEX (ER) 500 MG TAB PO SCH (21:00)
[2018-09-24] MEDS ORDERED: ATORVASTATIN 40 MG TAB PO SCH (21:00)
[2018-09-25] VITALS (7 sets, daily range): BP systolic 125–129; BP diastolic 57–61; PULSE 66–78; RESP 18
[2018-09-25] MEDS: morphine 2 MG INJ IV PRN ×2 (01:16→08:22)
[2018-09-25] MEDS: PANTOPRAZOLE (EC) 40 MG TAB PO SCH (06:03)
--- NOTE | 2018-09-25 08:02 | CONS ---
Consult Date/Type/Reason Admit Date/Time Sep 23, 2018 at 19:52 Initial Consult Date 09/24/18 Type of Consultation: cv Requesting Provider: SANDEE MCDONALD Date/Time of Note DATE: 09/25/18 TIME: 08:00 Subjective Cardiology follow-up progress note Subjective: Discussed with 7 telemetry was reviewed patient has remained sinus rhythm. No new cardiac events noted. Discussed with Dr. Mcdonald Objective: General: no acute distress HEENT: NC/AT. pupils are equal. round. NECK: NO JVD. no stridor. CV: RRR. systolic murmur; no gallop or rubs. PULM: no wheezing or rhonchi. GI: SOFT, NT, ND, no rebound or guarding Extremity: trace B/L LE edema. no clubbing. neuro: Sleeping Psych: calm and pleasant rectal: deferred : normal EKG shows normal sinus rhythm. Inferior infarct age undetermined EDUIN scan shows: 1. The type and distribution of the scintigraphic abnormalities are amost consistent with an unchanged small size predominantly nonreversible perfusion defect in the inferior and inferolateral lu. 2. No new wall motion abnormalities. 3. The left ventricle ejection fraction at stress is 58% (prior EF was 68%). Objective Vitals Vital Signs Date Temp Pulse Resp B/P (MAP) Pulse Ox O2 O2 Flow FiO2 Time Delivery Rate 09/25/18 Nasal 2.0 07:44 Cannula 09/25/18 97.9 74 18 129/61 97 07:13 (83) Intake and Output 09/24/18 09/24/18 09/25/18 1515:00 23:00 07:00 IntakeIntake Total 1200 ml 450 ml BalanceBalance 1200 ml 450 ml Results/Medications Result Diagram: 09/25/18 0525 09/25/18 0525 Results 24 hrs Laboratory Tests Test 09/24/18 11:00 09/24/18 13:50 09/25/18 05:25 White Blood Count 5.3 6.0 Red Blood Count 3.12 L 3.26 L Hemoglobin 9.3 L 9.7 L Hematocrit 30.7 L 33.1 L Mean Corpuscular Volume 98.4 101.5 H Mean Corpuscular Hemoglobin 29.8 29.8 Mean Corpuscular Hemoglobin Concent 30.3 L 29.3 L Red Cell Distribution Width 16.1 H 16.0 H Platelet Count 280 274 Mean Platelet Volume 9.7 9.7 Immature Granulocytes % 0.600 H 0.500 H Neutrophils % 56.2 66.5 Lymphocytes % 29.3 21.1 Monocytes % 11.6 H 9.4 Eosinophils % 1.7 2.2 Basophils % 0.6 0.3 Nucleated Red Blood Cells % 0.0 0.0 Immature Granulocytes # 0.030 0.030 Neutrophils # 3.0 4.0 Lymphocytes # 1.5 1.3 Monocytes # 0.6 0.6 Eosinophils # 0.1 0.1 Basophils # 0.0 0.0 Nucleated Red Blood Cells # 0.0 0.0 Sodium Level 141 139 Potassium Level 4.4 4.3 Chloride Level 104 100 Carbon Dioxide Level 35 H 35 H Anion Gap 2 L 4 L Blood Urea Nitrogen 23 H 25 H Creatinine 0.69 0.75 Est Glomerular Filtrat Rate mL/min Glucose Level 95 # 106 Hemoglobin A1c 6.0 H Calcium Level 9.4 8.7 Magnesium Level 2.0 1.8 Iron Level 78 Total Iron Binding Capacity 259 Percent Iron Saturation 30 Ferritin 101.0 Total Bilirubin 0.1 L Direct Bilirubin 0.00 Indirect Bilirubin 0.1 Aspartate Amino Transf (AST/SGOT) 29 Alanine Aminotransferase (ALT/SGPT) 32 Alkaline Phosphatase 93 Creatine Kinase 22 L Creatine Kinase Index 7.7 Creatinine Kinase MB (Mass) 1.69 Troponin I < 0.012 < 0.012 Total Protein 5.9 L Albumin 3.1 L Globulin 2.80 Albumin/Globulin Ratio 1.10 Triglycerides Level 135 Cholesterol Level 149 LDL Cholesterol, Calculated 70 HDL Cholesterol 52 Cholesterol/HDL Ratio 2.8 Phosphorus Level 4.2 Home Meds Active Scripts Levofloxacin* (Levaquin*) 750 Mg Tablet, 750 MG PO DAILY for 10 Days, #10 TAB Prov:FIDENCIOEVELIN 03/06/18 Hydrocodone/Acetaminophen ([place] 5-325 Tablet) 1 Each Tablet, 1 EACH PO Q6 PRN for SEVERE PAIN LEVEL 7-10, #7 TAB Prov:THOM RIZZO DO 03/04/18 Naproxen* (Naproxen*) 500 Mg Tablet, 500 MG PO BID PRN for PAIN, #20 TAB Prov:THOM RIZZO DO 03/04/18 Reported Medications Benzonatate* (Benzonatate*) 100 Mg Capsule, 100 MG PO TID PRN for COUGH, CAP 09/24/18 Olanzapine* (Zyprexa*) 5 Mg Tablet, 5 MG PO DAILY, #30 TAB 03/04/18 Ascorbic Acid* (Vitamin C*) 500 Mg Capsule.sa, 500 MG PO DAILY, CAP 03/04/18 Cran/Vitc/Mannose/Inulin/Brom (Uti-Stat Liquid) 3,875 Mg/30 Ml Liquid, 3875 MG PO DAILY 03/04/18 Acetaminophen* (Acetaminophen*) 650 Mg Tablet, 650 MG PO Q4 PRN for MILD PAIN LEVEL 1-3, #30 TAB 03/04/18 Tamsulosin Hcl* (Tamsulosin Hcl*) 0.4 Mg Cap.er.24h, 0.4 MG PO HS, CAP 03/04/18 Guaifenesin-Dextromethorphan* (Robitussin* DM) 100MG/10MG/5ML Syrup, 10 ML PO Q4H PRN for COUGH, ML 03/04/18 Fluoxetine Hcl* (Prozac*) 20 Mg Capsule, 20 MG PO DAILY, CAP 03/04/18 Pantoprazole* (Protonix*) 40 Mg Tablet.dr, 40 MG PO DAILY, TAB 03/04/18 Multivitamins* (Theragran*) 1 Tab Tab, 1 TAB PO DAILY, TAB 03/04/18 Magnesium Hydroxide* (Milk Of Magnesia*) 400 Mg/5 Ml Oral.susp, 30 ML PO DAILY, ML 03/04/18 Magnesium Oxide* (Mag-Oxide*) 400 Mg Tablet, 400 MG PO BID, TAB 03/04/18 Losartan Potassium* (Losartan Potassium*) 50 Mg Tablet, 50 MG PO DAILY, TAB 03/04/18 Atorvastatin* (Atorvastatin*) 40 Mg Tablet, 40 MG PO QHS, #30 TAB 03/04/18 Hydralazine Hcl* (Hydralazine Hcl*) 100 Mg Tablet, 100 MG PO Q8, #90 TAB 03/04/18 Gabapentin* (Gabapentin*) 300 Mg Capsule, 300 MG PO DAILY, #60 CAP 03/04/18 Na Phos,M-B/Na Phos,Di-Ba (ENEMA DSODY-GC-NBA) 133 Ml Enema, 133 ML RC EVERY 2 DAYS PRN for CONSTIPATION, ENEMA 03/04/18 Ferrous Sulfate* (Ferrous Sulfate*) 325 Mg Tabec, 325 MG PO DAILY, TAB 03/04/18 Bisacodyl (Dulcolax) 10 Mg Supp.rect, 10 MG RC DAILY PRN for CONSTIPATION, SUPP.RECT 03/04/18 Divalproex Sodium* (Depakote ER*) 500 Mg Tabsr, 1000 MG PO QHS, #60 TAB.SA 03/04/18 Cranberry Extract (Cranberry) 425 Mg Capsule, 425 MG PO DAILY, CAP 03/04/18 Docusate Sodium* (Colace*) 100 Mg Capsule, 200 MG PO QHS, #30 CAP 03/04/18 Carvedilol* (Carvedilol*) 6.25 Mg Tablet, 6.25 MG PO BID, #60 TAB 03/04/18 Medications Current Medications IV Flush (NS 3 ml) 3 ml PER PROTOCOL IV ; Start 09/23/18 at 22:00 Ondansetron HCl (Zofran Inj) 4 mg Q6H PRN IV NAUSEA/VOMITING; Start 09/23/18 at 22:00 Aspirin (Aspirin) 81 mg DAILY PO Last administered on 09/24/18at 08:16; Admin Dose 81 MG; Start 09/24/18 at 09:00 Nitroglycerin (Nitroglycerin (Sl Tab) 0.4 Mg) 1 tab Q5M PRN SL .CHEST PAIN; Start 09/23/18 at 22:00 Acetaminophen (Tylenol Tab) 650 mg Q6H PRN PO .PAIN 1-3 OR TEMP; Start 09/23/18 at 22:00 Acetaminophen/ Hydrocodone Bitart ([place] (5/325)) 1 tab Q6H PRN PO .PAIN 4-6 Last administered on 09/23/18at 22:05; Admin Dose 1 TAB; Start 09/23/18 at 22:00 Enoxaparin Sodium (Lovenox) 40 mg DAILY SC Last administered on 09/24/18at 08:22; Admin Dose 40 MG; Start 09/24/18 at 09:00 Albuterol/ Ipratropium (Duoneb) 3 ml Q2H RESP THERAPY PRN HHN SHORTNESS OF BREATH; Start 09/23/18 at 22:00 Atorvastatin Calcium (Lipitor) 40 mg QHS PO Last administered on 09/24/18at 21:50; Admin Dose 40 MG; Start 09/24/18 at 21:00 Carvedilol (Coreg) 6.25 mg BID PO Last administered on 09/24/18 21:50; Admin Dose 6.25 MG; Start 09/23/18 at 22:00 Divalproex Sodium (Depakote Er) 1,000 mg QHS PO Last administered on 09/24/18 21:50; Admin Dose 1,000 MG; Start 09/24/18 at 21:00 Ferrous Sulfate (Ferrous Sulfate (Ec)) 325 mg DAILY PO Last administered on 09/24/18 08:16; Admin Dose 325 MG; Start 09/24/18 at 09:00 Fluoxetine HCl (Prozac) 20 mg DAILY PO Last administered on 09/24/18 08:17; Admin Dose 20 MG; Start 09/24/18 at 09:00 Gabapentin (Neurontin) 300 mg DAILY PO Last administered on 09/24/18 08:16; Admin Dose 300 MG; Start 09/24/18 at 09:00 Losartan Potassium (Cozaar) 50 mg DAILY PO Last administered on 09/24/18 08:17; Admin Dose 50 MG; Start 09/24/18 at 09:00 Magnesium Oxide (Mag-Ox 400) 400 mg BID PO Last administered on 09/24/18 21:50; Admin Dose 400 MG; Start 09/24/18 at 09:00 Multivitamins Therapeutic (Theragran) 1 tab DAILY PO Last administered on 09/24/18 08:16; Admin Dose 1 TAB; Start 09/24/18 at 09:00 Olanzapine (Zyprexa) 5 mg DAILY PO Last administered on 09/24/18 08:16; Admin Dose 5 MG; Start 09/24/18 at 09:00 Pantoprazole (Protonix Tab) 40 mg DAILY@0600 PO Last administered on 09/25/18 06:03; Admin Dose 40 MG; Start 09/24/18 at 06:00 Morphine Sulfate (morphine) 1 mg Q4H PRN IV SEVERE PAIN LEVEL 7-10 Last administered on 09/25/18 01:16; Admin Dose 1 MG; Start 09/24/18 at 12:30 Phenol (Cepastat Lozenge) 1 lozenge Q1H PRN MT COUGH. (THROAT PAIN); Start 09/24/18 at 15:00 Assessment/Plan Hospital Course (Demo Recall) 1. Chest pain appears to be Atypical 2. History of DVT and PE 3. Hypertension 4. Reported history of congestive heart failure 5. COPD possible pneumonia 6. Psych disorder 7. Abnormal EKG 8. Coronary artery disease with history of CO Recommendation: Patient's troponin have been negative so far. Lexiscan stress test did not show any significant reversible ischemia Continue with the Coreg and ARB at the moment I will add Barrera given history of DVT and PE Thank you for his referral. We will continue to follow along with you JUAN JO MD [facility] JUAN JO MD Sep 25, 2018 08:02
[2018-09-25] MEDS: ASPIRIN 81 MG TAB PO SCH (08:21)
[2018-09-25] MEDS: FERROUS SULFATE (EC) 325 MG TAB PO SCH (08:21)
[2018-09-25] MEDS: OLANZAPINE 5 MG TAB PO SCH (08:21)
[2018-09-25] MEDS: MULTIVITAMINS THERAPEUTIC TAB PO SCH (08:21)
[2018-09-25] MEDS: MAGNESIUM OXIDE 400 MG TAB PO SCH (08:21)
[2018-09-25] MEDS: LOSARTAN 50 MG TAB PO SCH (08:21)
[2018-09-25] MEDS: FLUOXETINE 20 MG CAP PO SCH (08:21)
[2018-09-25] MEDS: GABAPENTIN 300 MG CAP PO SCH (08:21)
[2018-09-25] MEDS ORDERED: APIXABAN 5 MG TABLET PO SCH (09:00)
--- NOTE | 2018-09-25 10:17 | PDOCDIS ---
Discharge Instructions CONDITION [id number] Patient Condition: [id number] Stable HOME CARE INSTRUCTIONS: [id number] Diet Instructions: [id number] Low Fat /Cholesterol ACTIVITY: [id number] Activity Restrictions: [id number] Slowly Increase Activity Rest between Activity Avoid heavy lifting FOLLOW UP/APPOINTMENTS Follow-up Plan Please take your medications as prescribed, if you experience any further chest pain or shortness of breath please call your primary doctor or your brand ambassador promotional model, call 911, or go to the emergency room. Please follow-up with your regular doctors in the clinic in the next 1 to 2 weeks. SANDEE MCDONALD Sep 25, 2018 10:17
[2018-09-25] MEDS ORDERED: APIX5TAB PO (10:18)
--- NOTE | 2018-09-25 10:23 | DS ---
Date/Time of Note Date/Time of Note DATE: 09/25/18 TIME: 10:19 Discharge Summary Admission/Discharge Info Admit Date/Time Sep 23, 2018 at 19:52 Discharge Date/Time Discharge Diagnosis 1. Chest pain: Rule out ACS. First 2 troponins are negative. Per records, last stress test here at [facility] was in February 2018. Patient states he last saw kiln car unloader as an outpatient 2 months ago. -continue telemetry monitoring -Supplemental oxygen, aspirin, statin, beta-julio. As needed nitro -Serial troponin -awaiting third -Follow-up results of 2D echo and will obtain cardiology consult 2. History of CAD: Per patient was diagnosed in 1983. Denied a history of cardiac stent -See #1 3. History of COPD: No sign of acute exacerbation -Monitor, duo nebs as needed 4. Chronic lower back pain: Patient reported back surgery-Patient is usually on a wheelchair, will occasionally uses a walker -We will obtain PT eval -Pain management 5. 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 Normocytic anemia: Hemoglobin stable -Monitor for now, consider FOBT and iron/ferritin to work-up for iron deficiency 7. Debility: See #4 8. History of seizure: Continue home med 9. History of lower extremity DVT: Per patient status post IVC filter placement in 1983. He said filter has not been removed. -Monitor Patient Condition: Stable Procedures A. DATE OF PROCEDURE: 09/24/2018 TYPE OF PROCEDURE: Lexiscan stress test. INDICATION: Chest pain DESCRIPTION: Lexiscan was performed as per protocol. FINDINGS: 1. Baseline EKG shows normal sinus rhythm, possible inferior infarct, age undetermined. Heart rate at baseline is 74, blood pressure 123/65, heart rate at peak stress is 86, blood pressure 133/61. 2. No significant ischemic ST changes noted. CONCLUSIONS: Completion of Lexiscan at stress as per protocol. See nuclear medicine result for final report. B. Myocardial perfusion study: IMPRESSION: 1. The type and distribution of the scintigraphic abnormalities are amost consistent with an unchanged small size predominantly nonreversible perfusion defect in the inferior and inferolateral lu. 2. No new wall motion abnormalities. 3. The left ventricle ejection fraction at stress is 58% (prior EF was 68%). C. 2D echo: Conclusions: Lower limits of normal systolic function. Normal left ventricular cavity size. Sigmoid septum. Ejection fraction is visually estimated at 55 %. Tissue Doppler/Mitral Doppler indices are consistent with pseudonormalization with mildly elevated left atrial pressure (Stage II diastolic dysfunction). These segments of the LV are hypokinetic inferior mid segment and inferior apex segment. The left atrium is normal in size. Mild mitral leaflet calcification. Mild mitral annular calcification. Trace mitral regurgitation. No hemodynamically significant aortic stenosis by doppler. Aortic cusps appear mildly calcified. Normal appearance of the tricuspid valve. Estimated peak PA systolic pressure 32 mmHg. There is mild tricuspid regurgitation. Hx of Present Illness 73-year-old male with a history of COPD, CHF, bipolar, CAD, epilepsy, chronic low back pain with a history of back surgery, lower extremity DVT status post IVC filter in 1983 who presents the ER complaining of chest pain. Pain is left- sided, pressure-like with radiation to the left arm. He said this started last night. Unable to assess whether or not it is exertional since patient is usually on wheelchair, occasionally uses walker. He said he takes Dilaudid at home for chest pain. Presents the ER, vitals were stable. First troponin is negative and EKG without ST-T wave abnormality. Hospital Course Patient was admitted and seen by cardiology team during this hospital stay. He ruled out for acute coronary syndrome. He had echocardiogram performed with results listed above. He also underwent nuclear cardiac stress test which did not show any acute findings. Over the course of his hospital stay he had some cold symptoms that was relieved with antitussive medications. Labs were stable including white blood cell count, no fevers. He was able to ambulate, tolerated p.o. diet. He was started on low-dose Eliquis for prior history of DVT and PE, although again there were no apparent acute findings of this. Patient also has a history of IVC filter placement in the past. After getting clearance from the consult team she will be discharged home today in improved condition. See below for full list of discharge medications. Home Meds Active Scripts Apixaban* (Eliquis*) 5 Mg Tablet, 2.5 MG PO BID, #60 TAB 4 Refills Prov:SANDEE MCDONALD S. 09/25/18 Hydrocodone/Acetaminophen ([place] 5-325 Tablet) 1 Each Tablet, 1 EACH PO Q6 PRN for SEVERE PAIN LEVEL 7-10, #7 TAB Prov:THOM RIZZO DO 03/04/18 Naproxen* (Naproxen*) 500 Mg Tablet, 500 MG PO BID PRN for PAIN, #20 TAB Prov:THOM RIZZO DO 03/04/18 Reported Medications Benzonatate* (Benzonatate*) 100 Mg Capsule, 100 MG PO TID PRN for COUGH, CAP 09/24/18 Olanzapine* (Zyprexa*) 5 Mg Tablet, 5 MG PO DAILY, #30 TAB 03/04/18 Ascorbic Acid* (Vitamin C*) 500 Mg Capsule.sa, 500 MG PO DAILY, CAP 03/04/18 Cran/Vitc/Mannose/Inulin/Brom (Uti-Stat Liquid) 3,875 Mg/30 Ml Liquid, 3875 MG PO DAILY 03/04/18 Acetaminophen* (Acetaminophen*) 650 Mg Tablet, 650 MG PO Q4 PRN for MILD PAIN LEVEL 1-3, #30 TAB 03/04/18 Tamsulosin Hcl* (Tamsulosin Hcl*) 0.4 Mg Cap.er.24h, 0.4 MG PO HS, CAP 03/04/18 Guaifenesin-Dextromethorphan* (Robitussin* DM) 100MG/10MG/5ML Syrup, 10 ML PO Q4H PRN for COUGH, ML 03/04/18 Fluoxetine Hcl* (Prozac*) 20 Mg Capsule, 20 MG PO DAILY, CAP 03/04/18 Pantoprazole* (Protonix*) 40 Mg Tablet.dr, 40 MG PO DAILY, TAB 03/04/18 Multivitamins* (Theragran*) 1 Tab Tab, 1 TAB PO DAILY, TAB 03/04/18 Magnesium Hydroxide* (Milk Of Magnesia*) 400 Mg/5 Ml Oral.susp, 30 ML PO DAILY, ML 03/04/18 Magnesium Oxide* (Mag-Oxide*) 400 Mg Tablet, 400 MG PO BID, TAB 03/04/18 Losartan Potassium* (Losartan Potassium*) 50 Mg Tablet, 50 MG PO DAILY, TAB 03/04/18 Atorvastatin* (Atorvastatin*) 40 Mg Tablet, 40 MG PO QHS, #30 TAB 03/04/18 Hydralazine Hcl* (Hydralazine Hcl*) 100 Mg Tablet, 100 MG PO Q8, #90 TAB 03/04/18 Gabapentin* (Gabapentin*) 300 Mg Capsule, 300 MG PO DAILY, #60 CAP 03/04/18 Na Phos,M-B/Na Phos,Di-Ba (ENEMA [id number]) 133 Ml Enema, 133 ML RC EVERY 2 DAYS PRN for CONSTIPATION, ENEMA 03/04/18 Ferrous Sulfate* (Ferrous Sulfate*) 325 Mg Tabec, 325 MG PO DAILY, TAB 03/04/18 Bisacodyl (Dulcolax) 10 Mg Supp.rect, 10 MG RC DAILY PRN for CONSTIPATION, SUPP.RECT 03/04/18 Divalproex Sodium* (Depakote ER*) 500 Mg Tabsr, 1000 MG PO QHS, #60 TAB.SA 03/04/18 Cranberry Extract (Cranberry) 425 Mg Capsule, 425 MG PO DAILY, CAP 03/04/18 Docusate Sodium* (Colace*) 100 Mg Capsule, 200 MG PO QHS, #30 CAP 03/04/18 Carvedilol* (Carvedilol*) 6.25 Mg Tablet, 6.25 MG PO BID, #60 TAB 03/04/18 Discontinued Scripts Levofloxacin* (Levaquin*) 750 Mg Tablet, 750 MG PO DAILY for 10 Days, #10 TAB Prov:EVELIN NICOLAS 03/06/18 Follow-up Plan Please take your medications as prescribed, if you experience any further chest pain or shortness of breath please call your primary doctor or your kiln car unloader, call 911, or go to the emergency room. Please follow-up with your regular doctors in the clinic in the next 1 to 2 weeks. Primary Care Provider Not On Staff Doctor Time spent on discharge: > 30 minutes Pending Labs Laboratory Tests Test 09/24/18 11:00 09/24/18 13:50 09/25/18 05:25 White Blood Count 5.3 6.0 10^3/ul (4.8-10.8) 10^3/ul (4.8-10.8) Red Blood Count 3.12 3.26 10^6/ul (4.70-6.10) 10^6/ul (4.70-6.10 ) Hemoglobin 9.3 9.7 g/dl (14.0-18.0) g/dl (14.0-18.0) Hematocrit 30.7 % (42.0-52.0) 33.1 % (42.0-52.0) Mean Corpuscular 98.4 101.5 Volume fl (82.0-101.0) fl (82.0-101.0) Mean Corpuscular 29.8 pg (29.0-33.0) 29.8 Hemoglobin pg (29.0-33.0) Mean Corpuscular 30.3 29.3 Hemoglobin Concent g/dl (32.0-37.0) g/dl (32.0-37.0) Red Cell 16.1 % (11.5-14.5) 16.0 % (11.5-14.5) Distribution Width Platelet Count 280 274 10^3/UL (140-415) 10^3/UL (140-415) Mean Platelet 9.7 fl (7.4-10.4) 9.7 fl (7.4-10.4) Volume Immature 0.600 0.500 Granulocytes % % (0.001-0.429) % (0.001-0.429) Neutrophils % 56.2 % (39.0-77.0) 66.5 % (39.0-77.0) Lymphocytes % 29.3 % (15.0-51.0) 21.1 % (15.0-51.0) Monocytes % 11.6 % (0.0-11.0) 9.4 % (0.0-11.0) Eosinophils % 1.7 % (0.0-7.0) 2.2 % (0.0-7.0) Basophils % 0.6 % (0.0-2.0) 0.3 % (0.0-2.0) Nucleated Red Blood 0.0 0.0 Cells % /100WBC (0.0-0.0) /100WBC (0.0-0.0) Immature 0.030 0.030 Granulocytes # 10^3/ul (0.0-0.031) 10^3/ul (0.0-0.031 ) Neutrophils # 3.0 4.0 10^3/ul (1.6-7.5) 10^3/ul (1.6-7.5) Lymphocytes # 1.5 1.3 10^3/ul (0.8-2.9) 10^3/ul (0.8-2.9) Monocytes # 0.6 0.6 10^3/ul (0.3-0.9) 10^3/ul (0.3-0.9) Eosinophils # 0.1 0.1 10^3/ul (0.0-0.5) 10^3/ul (0.0-0.5) Basophils # 0.0 0.0 10^3/ul (0.0-0.1) 10^3/ul (0.0-0.1) Nucleated Red Blood 0.0 0.0 Cells # 10^3/ul (0.0-0.0) 10^3/ul (0.0-0.0) Sodium Level 141 139 mmol/L (135-144) mmol/L (135-144) Potassium Level 4.4 4.3 mmol/L (3.5-5.1) mmol/L (3.5-5.1) Chloride Level 104 mmol/L (97-110) 100 mmol/L (97-110) Carbon Dioxide 35 mmol/L (21-31) 35 mmol/L (21-31) Level Anion Gap 2 (5-13) 4 (5-13) Blood Urea 23 mg/dl (7-20) 25 mg/dl (7-20) Nitrogen Creatinine 0.69 0.75 mg/dl (0.61-1.24) mg/dl (0.61-1.24) Est Glomerular mL/min (>60) mL/min (>60) Filtrat Rate mL/min Glucose Level 95 mg/dl (70-220) 106 mg/dl (70-220) Hemoglobin A1c 6.0 % (0-5.9) Calcium Level 9.4 8.7 mg/dl (8.4-10.2) mg/dl (8.4-10.2) Magnesium Level 2.0 mg/dl (1.7-2.5) 1.8 mg/dl (1.7-2.5) Iron Level 78 ug/dl (35-150) Total Iron Binding 259 ug/dl (241-421) Capacity Percent Iron 30 % SAT (22-52) Saturation Ferritin 101.0 ng/ml (11.1-264.0) Total Bilirubin 0.1 mg/dl (0.2-1.3) Direct Bilirubin 0.00 mg/dl (0.00-0.20) Indirect Bilirubin 0.1 mg/dl (0-1.1) Aspartate Amino 29 IU/L (15-46) Transf (AST/SGOT) Alanine 32 IU/L (13-69) Aminotransferase (A LT/SGPT) Alkaline 93 IU/L (42-121) Phosphatase Creatine Kinase 22 IU/L (23-200) Creatine Kinase 7.7 Index Creatinine Kinase 1.69 MB (Mass) ng/ml (0.0-2.4) Troponin I < 0.012 < 0.012 ng/ml (0.000-0.120) ng/ml (0.000-0.120 ) Total Protein 5.9 g/dl (6.1-8.1) Albumin 3.1 g/dl (3.3-4.9) Globulin 2.80 g/dl (1.3-3.2) Albumin/Globulin 1.10 Ratio Triglycerides 135 mg/dl (0-149) Level Cholesterol Level 149 mg/dl (100-200) LDL Cholesterol, 70 mg/dl Calculated HDL Cholesterol 52 mg/dl (31-75) Cholesterol/HDL 2.8 RATIO Ratio Phosphorus Level 4.2 mg/dl (2.5-4.9) SANDEE MCDONALD Sep 25, 2018 10:23
== END 2018-09-25 11:46 | disposition home or self-care (01) ==
LOC: E/R 17:29 → 6WM 19:52
PROVIDERS: ADMIT Internal Medicine; ATTEND Hospitalist
DX: R07.9 Chest pain, unspecified (principal); I11.0 Hypertensive heart disease with heart failure; I50.9 Heart failure, unspecified; J44.9 Chronic obstructive pulmonary disease, unspecified; G40.909 Epilepsy, unspecified, not intractable, without status epilepticus; F31.9 Bipolar disorder, unspecified; I25.10 Atherosclerotic heart disease of native coronary artery without angina pectoris; M54.5 Low back pain; G89.29 Other chronic pain; D64.9 Anemia, unspecified; R53.81 Other malaise; Z86.718 Personal history of other venous thrombosis and embolism
CPT/HCPCS: 36415; 71045; 78452; 80048; 80053; 80061; 82550; 82553; 82728; 83036; 83540; 83735; 84100; 84484; 85025; 93005; 93017; 93306; 97163; 99285; A9500; A9505; G0378; J1650; J2270; J2785